=== PATIENT | female | born 1980 | race Caucasian/White ===

== ENCOUNTER 2016-11-02 03:01 | Emergency (ER) | payer BC, SELFPAY ==
[2016-11-02] MEDS ORDERED: Sodium Chloride 0.9% 1,000 ML IV ONE (03:03)
--- NOTE | 2016-11-02 03:15 | EDM.PDOC ---
ED HPI GENERAL MEDICAL PROBLEM - General Chief Complaint: Behavioral/Psych Stated Complaint: AMBULANCE Time Seen by Provider: 11/02/16 03:05 Source of Information: Reports: Patient - History of Present Illness INITIAL COMMENTS - FREE TEXT/NARRATIVE: HISTORY AND PHYSICAL: History of present illness: [] Patient presents via ambulance with suicide attempt via ingestion 7 tablets of clonazepam 0.5 mg Lexapro 10 mg #10 tabs ingested Ingestion occurred at 1:45 AM Patient is clinically intoxicated Patient was on the telephone earlier tonight with her [id number], stated that she was going to ingested these pills as she" just wants all her pain to end" her [id number] then called police which went to the house and found her with 5-1016 ounce bottles of alcohol or weren't day as well as 2 pill bottles were empty diazepam 0.5 mg tablets prescribed on 10 08 2016 #20 tabs, she states she did take and 7 of these. She also has a bottle of Lexapro prescribed on 10 05 16 Lexapro 10 mg tablets #30 she states that she had taken 10 of these, the bottles are empty at current, he states she has been taking the Lexapro on a when necessary basis rather than daily. Review of systems: As per history of present illness and below otherwise all systems reviewed and negative. Past medical history: As per history of present illness and as reviewed below otherwise noncontributory. Surgical history: As per history of present illness and as reviewed below otherwise noncontributory. Social history: History of drinking alcohol tonight, her brother had committed suicide approximately 6 months prior, the father of her 14-year-old child is apparently a heroin and is unknown as to where his whereabouts are. Her daughter was at home at time of this incident apparently police are taking care of her daughter at this time Family history: As per history of present illness and as reviewed below otherwise noncontributory. Physical exam: HEENT: Atraumatic, normocephalic, pupils reactive, negative for conjunctival pallor or scleral icterus, mucous membranes moist, throat clear, neck supple, nontender, trachea midline. Lungs: Clear to auscultation, breath sounds equal bilaterally, chest nontender. Heart: S1S2, regular, negative for clicks, rubs, or JVD. Abdomen: Soft, nondistended, nontender. Negative for masses or hepatosplenomegaly. Negative for costovertebral tenderness. Pelvis: Stable nontender. Genitourinary: Deferred. Rectal: Deferred. Extremities: Atraumatic, negative for cords or calf pain. Neurovascular unremarkable. Neuro: Awake, alert, oriented. Cranial nerves II through XII unremarkable. Cerebellum unremarkable. Motor and sensory unremarkable throughout. Exam nonfocal. Diagnostics: [] Lab as below EKG Chest one view Therapeutics: [] Liter normal saline bolus Impression: [] Suicide attempt by ingestion Alcohol intoxication Patient discussed with Dr. Min psychiatrist health information technologist at [facility] in detail she accepts care, she'll be transferred to the ER Dr. Howard to evaluate on arrival Definitive disposition and diagnosis as appropriate pending reevaluation and review of above. no pain verbalized Pain Score (Numeric/FACES): 0 - Related Data Allergies Allergy/AdvReac Type Severity Reaction Status Date / Time BRANDY Inhibitors Allergy Hives Verified 11/02/16 03:06 sertraline [From Zoloft] Allergy Other Verified 11/02/16 03:07 Home Meds: Home Meds Control Pills 1 tab PO DAILY 11/02/16 [History] ClonazePAM [KlonoPIN] 1 tab PO TID 11/02/16 [History] Escitalopram [Lexapro] 1 tab PO DAILY 11/02/16 [History] Past Medical History - Past Health History Medical/Surgical History: Denies Medical/Surgical History HEENT History: Reports: Retinal detachment Cardiovascular History: Reports: Hypertension Other Cardiovascular History: Pt reported she has history of elevated blood pressure but do not take medications for it. Gastrointestinal History: Reports: None [employer] History: Reports: None Musculoskeletal History: Reports: None Neurological History: Reports: None Psychiatric History: Reports: Anxiety, Depression, PTSD Other Psychiatric History: Pt reported anxiety,depression,and ptsd started after brother of suicide Jan 2016. She started on a lower dose of Sertraline on Apr 2015 then dosage was adjusted/increased. Endocrine/Metabolic History: Reports: None Dermatologic History: Reports: None - Infectious Disease History Infectious Disease History: Reports: Chicken pox - Past Surgical History HEENT Surgical History: Reports: None Social & Family History - Family History Family Medical History: Noncontributory - Tobacco Use Smoking Status *Q: Former Smoker Years of Tobacco use: 12 Packs/Tins Daily: 1 - Caffeine Use Caffeine Use: Reports: Tea Caffeine Use Comment: 2cups/day - Alcohol Use Days Per Week of Alcohol Use: 1 Number of Drinks Per Day: 2 Total Drinks Per Week: 2 - Recreational Drug Use Recreational Drug Use: No ED ROS GENERAL - Review of Systems Review Of Systems: ROS reveals no pertinent complaints other than HPI. ED EXAM, GENERAL - Physical Exam Exam: See Below Course - Vital Signs Last Recorded V/S: Last Vital Signs Temp 37.3 C 11/02/16 03:09 Pulse 93 11/02/16 03:33 Resp 16 11/02/16 03:33 BP 131/96 H 11/02/16 03:33 Pulse Ox 96 11/02/16 03:33 - Orders/Labs/Meds Orders: Active Orders 24 hr Category Date Time Status EKG Documentation Completion [RC] STAT Care 11/02/16 03:03 Active Chest 1V Frontal [CR] Stat Exams 11/02/16 03:03 Taken Labs: Laboratory Tests 11/02/16 11/02/16 11/02/16 Range/Units 03:10 03:10 03:10 WBC 6.71 (4.0-11.0) K/uL RBC 4.17 L (4.30-5.90) M/uL Hgb 12.9 (12.0-16.0) g/dL Hct 38.2 (36.0-46.0) % MCV 91.6 (80.0-98.0) fL MCH 30.9 (27.0-32.0) pg MCHC 33.8 (31.0-37.0) g/dL RDW Std Deviation 41.5 (28.0-62.0) fl RDW Coeff of Layne 12 (11.0-15.0) % Plt Count 217 (150-400) K/uL MPV 9.20 (7.40-12.00) fL Neut % (Auto) 43.0 L (48.0-80.0) % Lymph % (Auto) 48.3 H (16.0-40.0) % Lyon % (Auto) 5.5 (0.0-15.0) % Eos % (Auto) 2.5 (0.0-7.0) % Baso % (Auto) 0.7 (0.0-1.5) % Neut # (Auto) 2.9 (1.4-5.7) K/uL Lymph # (Auto) 3.2 H (0.6-2.4) K/uL Lyon # (Auto) 0.4 (0.0-0.8) K/uL Eos # (Auto) 0.2 (0.0-0.7) K/uL Baso # (Auto) 0.1 (0.0-0.1) K/uL Nucleated RBC % 0.0 /100WBC Nucleated RBCs # 0 K/uL Sodium 132 L (136-146) mmol/L Potassium 3.3 L (3.5-5.1) mmol/L Chloride 100 (98-110) mmol/L Carbon Dioxide 19 L (21-31) mmol/L BUN 16 (6.0-23.0) mg/dL Creatinine 0.9 (0.6-1.5) mg/dL Est Cr Clr Drug Dosing 85.65 mL/min Estimated GFR (MDRD) > 60.0 ml/min Glucose 101 (60-110) mg/dL Calcium 9.2 (8.8-10.8) mg/dL Total Bilirubin 0.2 (0.1-1.5) mg/dL AST 36 (5-40) IU/L ALT 36 (8-54) IU/L Alkaline Phosphatase 48 (40-150) Troponin I < 0.10 (0.0-0.29) NG/ML Total Protein 6.9 (6.0-8.0) g/dL Albumin 3.8 (3.5-5.0) g/dL Globulin 3.1 (2.0-3.5) g/dL Albumin/Globulin Ratio 1.2 L (1.3-2.8) TSH 3rd Generation 1.40 (0.47-5.0) uIU/mL Urine Color Urine Appearance Urine pH (5.0-8.0) Ur Specific Reddick (1.001-1.035) Urine Protein (NEGATIVE) mg/dL Urine Glucose (UA) (NEGATIVE) mg/dL Urine Ketones (NEGATIVE) mg/dL Urine Occult Blood (NEGATIVE) Urine Nitrite (NEGATIVE) Urine Bilirubin (NEGATIVE) Urine Urobilinogen (<2.0) EU/dL Ur Leukocyte Esterase (NEGATIVE) Urine RBC (0-2/HPF) Urine WBC (0-5/HPF) Ur Epithelial Cells (NONE-FEW) Urine Bacteria (NEGATIVE) Urine HCG, Qual (NEGATIVE) Salicylates < 5.0 (0-20) mg/dL Urine Opiates Screen (NEGATIVE) Ur Oxycodone Screen (NEGATIVE) Urine Methadone Screen (NEGATIVE) Acetaminophen < 3.0 ug/mL Ur Barbiturates Screen (NEGATIVE) Ur Phencyclidine Scrn (NEGATIVE) Ur Amphetamine Screen (NEGATIVE) U Methamphetamines Scrn (NEGATIVE) U Benzodiazepines Scrn (NEGATIVE) U Cocaine Metab Screen (NEGATIVE) U Marijuana (THC) Screen (NEGATIVE) Ethyl Alcohol 272.1 mg/dL 11/02/16 11/02/16 11/02/16 Range/Units 03:25 03:25 03:25 WBC (4.0-11.0) K/uL RBC (4.30-5.90) M/uL Hgb (12.0-16.0) g/dL Hct (36.0-46.0) % MCV (80.0-98.0) fL MCH (27.0-32.0) pg MCHC (31.0-37.0) g/dL RDW Std Deviation (28.0-62.0) fl RDW Coeff of Layne (11.0-15.0) % Plt Count (150-400) K/uL MPV (7.40-12.00) fL Neut % (Auto) (48.0-80.0) % Lymph % (Auto) (16.0-40.0) % Lyon % (Auto) (0.0-15.0) % Eos % (Auto) (0.0-7.0) % Baso % (Auto) (0.0-1.5) % Neut # (Auto) (1.4-5.7) K/uL Lymph # (Auto) (0.6-2.4) K/uL Lyon # (Auto) (0.0-0.8) K/uL Eos # (Auto) (0.0-0.7) K/uL Baso # (Auto) (0.0-0.1) K/uL Nucleated RBC % /100WBC Nucleated RBCs # K/uL Sodium (136-146) mmol/L Potassium (3.5-5.1) mmol/L Chloride (98-110) mmol/L Carbon Dioxide (21-31) mmol/L BUN (6.0-23.0) mg/dL Creatinine (0.6-1.5) mg/dL Est Cr Clr Drug Dosing mL/min Estimated GFR (MDRD) ml/min Glucose (60-110) mg/dL Calcium (8.8-10.8) mg/dL Total Bilirubin (0.1-1.5) mg/dL AST (5-40) IU/L ALT (8-54) IU/L Alkaline Phosphatase (40-150) Troponin I (0.0-0.29) NG/ML Total Protein (6.0-8.0) g/dL Albumin (3.5-5.0) g/dL Globulin (2.0-3.5) g/dL Albumin/Globulin Ratio (1.3-2.8) TSH 3rd Generation (0.47-5.0) uIU/mL Urine Color YELLOW Urine Appearance CLEAR Urine pH 5.5 (5.0-8.0) Ur Specific Reddick <= 1.005 (1.001-1.035) Urine Protein NEGATIVE (NEGATIVE) mg/dL Urine Glucose (UA) NEGATIVE (NEGATIVE) mg/dL Urine Ketones NEGATIVE (NEGATIVE) mg/dL Urine Occult Blood NEGATIVE (NEGATIVE) Urine Nitrite NEGATIVE (NEGATIVE) Urine Bilirubin NEGATIVE (NEGATIVE) Urine Urobilinogen 0.2 (<2.0) EU/dL Ur Leukocyte Esterase NEGATIVE (NEGATIVE) Urine RBC 0-2 (0-2/HPF) Urine WBC NONE SEEN (0-5/HPF) Ur Epithelial Cells RARE (NONE-FEW) Urine Bacteria RARE (NEGATIVE) Urine HCG, Qual NEGATIVE (NEGATIVE) Salicylates (0-20) mg/dL Urine Opiates Screen NEGATIVE (NEGATIVE) Ur Oxycodone Screen NEGATIVE (NEGATIVE) Urine Methadone Screen NEGATIVE (NEGATIVE) Acetaminophen ug/mL Ur Barbiturates Screen NEGATIVE (NEGATIVE) Ur Phencyclidine Scrn NEGATIVE (NEGATIVE) Ur Amphetamine Screen NEGATIVE (NEGATIVE) U Methamphetamines Scrn NEGATIVE (NEGATIVE) U Benzodiazepines Scrn NEGATIVE (NEGATIVE) U Cocaine Metab Screen NEGATIVE (NEGATIVE) U Marijuana (THC) Screen NEGATIVE (NEGATIVE) Ethyl Alcohol mg/dL Meds: Medications Discontinued Medications Generic Name Dose Route Start Last Admin Trade Name Freq PRN Reason Stop Dose Admin Sodium Chloride 1,000 mls @ 999 mls/hr 11/02/16 03:03 11/02/16 03:54 Normal Saline IV 11/02/16 04:03 999 mls/hr STAT ONE Administration Departure - Departure Time of Disposition: 04:06 Disposition: DC/Tfer to Other 70 Condition: fair Clinical Impression: Overdose, Suicidal ideation Forms: ED Department Discharge - My Orders Last 24 Hours: My Active Orders 11/02/16 03:03 EKG Documentation Completion [RC] STAT Chest 1V Frontal [CR] Stat - Assessment/Plan Last 24 Hours: My Active Orders 11/02/16 03:03 EKG Documentation Completion [RC] STAT Chest 1V Frontal [CR] Stat
[2016-11-02 03:35] LABS: CHLORIDE,CL 100 mmol/L (98-110); SODIUM,NA 132 mmol/L (136-146)
[2016-11-02 03:52] LABS: ACETAMINOPHEN < 3.0 ug/mL
[2016-11-02 05:31] VITALS: BP 134/87
--- NOTE | 2016-11-02 11:11 | CR ---
EXAM DATE: 11/02/16 PATIENT'S AGE: 36 Patient: TAMMI RODRIGUEZ Facility: [place], [place] Site . Site : [id number] Study: XRay Chest [id number]/3/2017 3:47:03 AM Ordering Physician: Kenzie Daniel Final Report: INDICATION: suicidal intentions TECHNIQUE: Chest 1 view. COMPARISON: None. FINDINGS: Cardiovascular and mediastinum: Heart size and vasculature are normal in caliber and appearance. Mediastinum is within normal limits. Lungs and pleural space: Lungs are clear. No sign of infiltrate or mass. No sign of pleural effusion. No pneumothorax. Bones and soft tissues: No significant findings. IMPRESSION: Unremarkable chest. Dictated by: Karlos Wakefield MD @ 11/02/2016 03:51:55 (Electronic Signature) Report Signed by Proxy. [facility] MEDICAL CENTERArmaan
== END 2016-11-02 05:00 | disposition other institution (70) ==
LOC: MW.ED 03:01
DX: T42.4X2A Poisoning by benzodiazepines, intentional self-harm, initial encounter (principal); R45.851 Suicidal ideations; F41.9 Anxiety disorder, unspecified; F32.9 Major depressive disorder, single episode, unspecified; Z87.891 Personal history of nicotine dependence; Z88.8 Allergy status to other drugs, medicaments and biological substances; Z79.899 Other long term (current) drug therapy
CPT/HCPCS: 36415; 71010; 80053; 80305; 81001; 81025; 84443; 84484; 85025; 93005; 96360; 99285; G0480; J7040